=== PATIENT | female | born 1965 | race Caucasian/White ===

== ENCOUNTER → 2018-11-26 | Outpatient (CLI) | payer OTHER ==
--- NOTE | 2018-11-26 12:39 | BD ---
EXAMINATION TYPE: Axial Bone Density DATE OF EXAM: 11/26/2018 COMPARISON: NONE CLINICAL HISTORY: osteoporosis Height: 5'2 1/2 Weight: 127 FRAX RISK QUESTIONS: Secondary Osteoporosis: RISK FACTORS HISTORY OF: Family History of Osteoporosis: y Postmenopausal woman: y MEDICATIONS: Additional Medications: Additional History: EXAM MEASUREMENTS: Bone mineral densitometry was performed using the [employer] System. Bone mineral density as measured about the Lumbar spine is: ----- L1-L4(G/cm2): 0.848 T Score Values are as follows: ----- L2: -3.0 ----- L3: -2.8 ----- L4: -2.5 ----- L1-L4: -2.8 Bone mineral density about the R hip (g/cm2): 0.680 Bone mineral density about the L hip (g/cm2): 0.729 T Score values are as follows: -----R Neck: -2.6 -----L Neck: -2.2 -----R Total: -1.8 -----L Total: -1.5 IMPRESSION: Osteoporosis (T Score less than -2.5) overall and low back and femoral neck level right hip. There is increased fracture risk and therapy is usually indicated based on age. Re-Screen 1-2 years. NOTE: T-SCORE=SD OF THE YOUNG ADULT MEAN.
--- NOTE | 2018-11-27 09:35 | MM ---
Reason for exam: screening (asymptomatic). Last mammogram was performed 4 years and 9 months ago. History: Patient is postmenopausal. Benign excisional biopsy of the left breast, 1978. Physical Findings: A clinical breast exam by your physician is recommended on an annual basis and results should be correlated with mammographic findings. MG Screening Mammo w CAD Bilateral CC and MLO view(s) were taken. Prior study comparison: March 01, 2014, mammogram, performed at [facility]. March 19, 2012, mammogram, performed at [facility]. Finding: There is a high density, indistinct round mass in the 6 o'clock middle position. New finding since March 01, 2014. ASSESSMENT: Incomplete: need additional imaging evaluation, BI-RAD 0 RECOMMENDATION: Special view mammogram of the right breast. If lesion persists on supplemental views, image directed ultrasound is recommended. [facility] will attempt to contact patient to return for supplemental views and ultrasound if indicated.
== END | disposition home or self-care (01) ==
LOC: RADMAMWWP 07:27
PROVIDERS: ATTEND Family Medicine
DX: Z12.31 Encounter for screening mammogram for malignant neoplasm of breast (principal); M81.0 Age-related osteoporosis without current pathological fracture
CPT/HCPCS: 77067; 77080

== ENCOUNTER → 2018-12-11 | Outpatient (CLI) | payer OTHER ==
--- NOTE | 2018-12-11 08:25 | MM ---
Reason for exam: additional evaluation requested from abnormal screening. Last mammogram was performed less than 1 month ago. History: Patient is postmenopausal. Benign excisional biopsy of the left breast, 1978. Physical Findings: Nurse Summary: 0.5cm nodule in the right breast at 4 o'clock (nurse mj). MG Work Up Mamm w CAD RT Spot compression CC, spot compression MLO, and LM view(s) were taken of the right breast. Prior study comparison: November 26, 2018, bilateral MG screening mammo w CAD. March 01, 2014, mammogram, performed at [facility]. There are scattered fibroglandular densities. No persisting abnormality on additional view. Palpable marker medially indicating a cutaneous lesion present and stable back to 2013, slightly larger from 2011. These results were verbally communicated with the patient and result sheet given to the patient on 12/11/18. ASSESSMENT: Benign, BI-RAD 2 RECOMMENDATION: Return to routine screening mammogram schedule for both breasts. Manage on a clinical basis with regard to medial cutaneous lesion. If symptomatic, consider dermatology referral.
== END ==
LOC: RADMAMWWP 07:06
PROVIDERS: ATTEND Family Medicine
DX: R92.8 Other abnormal and inconclusive findings on diagnostic imaging of breast (principal)
CPT/HCPCS: 77065

== ENCOUNTER → 2021-02-28 | Outpatient (CLI) | payer OTHER ==
--- NOTE | 2021-02-28 11:43 | BD ---
"EXAMINATION TYPE: Axial Bone Density DATE OF EXAM: 02/28/2021 COMPARISON: NONE CLINICAL HISTORY: Height: 5 FT 2 1/2 IN Weight: 125 FRAX RISK QUESTIONS: Alcohol (3 or more units per day): NO Family History (Parent hip fracture): NO Glucocorticoids (More than 3mos): NO (Ex: prednisone, prednisolone, methylprednisolone, dexamethasone, and hydrocortisone). History of Fracture in Adulthood: NO Secondary Osteoporosis: 1. Type 1 Diabetes: NO 2. Hyperthyroidism: NO 3. Menopause before 45: NO 4. Malnutrition: NO 5. Chronic liver disease: NO Rheumatoid Arthritis: NO Current Tobacco Use: NO RISK FACTORS HISTORY OF: Surgery to Spine/Hip(right/left)/Wrist (right/left): NO Family History of Osteoporosis: YES Active: YES Diet low in dairy products/other sources of calcium: NO Postmenopausal woman: AGE 49 ABLATION AGE 41 Take estrogen and/or progesterone medications: NO Lost more than 2 inches in height since high school: NO MEDICATIONS: Osteoporosis Medications: YES Which medication: FOSAMAX How Long: SINCE 2019 Additional Medications: FOSAMAX, Additional History: EXAM MEASUREMENTS: Bone mineral densitometry was performed using the [employer]. Bone mineral density as measured about the Lumbar spine is: ----- L1-L4(G/cm2): 0.897 T Score Values are as follows: ----- L2: -2.9 ----- L3: -2.3 ----- L4: -1.8 ----- L1-L4: -2.4 Bone mineral density has: INCREASED 6.0 % since study of: 2018 Bone mineral density about the R hip (g/cm2): 0.684 Bone mineral density about the L hip (g/cm2): 0.727 T Score values are as follows: -----R Neck: -2.5 -----L Neck: -2.2 -----R Total: -1.6 -----L Total: -1.5 Bone mineral density has: INCREASED 1.9 % since study of: 2019 IMPRESSION: Osteoporosis (T Score less than -2.5). There is increased fracture risk and therapy is usually indicated based on age. Re-Screen 1-2 years. NOTE: T-SCORE=SD OF THE YOUNG ADULT MEAN."
--- NOTE | 2021-03-01 12:15 | MM ---
Reason for exam: screening (asymptomatic). Last mammogram was performed 2 years and 3 months ago. History: Patient is postmenopausal. Benign excisional biopsy of the left breast, 1978. Physical Findings: A clinical breast exam by your physician is recommended on an annual basis and results should be correlated with mammographic findings. MG Screening Mammo w CAD Bilateral CC and MLO view(s) were taken. Prior study comparison: December 11, 2018, right breast MG work up mamm w CAD RT. November 26, 2018, bilateral MG screening mammo w CAD. There are scattered fibroglandular densities. Focal asymmetry 5mm central middle depth. ASSESSMENT: Incomplete: need additional imaging evaluation, BI-RAD 0 RECOMMENDATION: Special view mammogram and ultrasound of the right breast. [facility] will attempt to contact patient to return for supplemental views and ultrasound.
== END | disposition home or self-care (01) ==
LOC: RADMAMWWP 07:31
PROVIDERS: ATTEND Family Medicine
DX: Z12.31 Encounter for screening mammogram for malignant neoplasm of breast (principal); M81.0 Age-related osteoporosis without current pathological fracture; Z98.890 Other specified postprocedural states
CPT/HCPCS: 77067; 77080

== ENCOUNTER → 2021-03-03 | Outpatient (CLI) | payer OTHER ==
--- NOTE | 2021-03-09 11:25 | MM ---
Reason for exam: additional evaluation requested from abnormal screening. Last mammogram was performed less than 1 month ago. History: Patient is postmenopausal. Benign excisional biopsy of the left breast, 1978. Physical Findings: Nurse Summary: 1cm nodule in the right breast at 3 o'clock (nurse nishi). MG Work Up Mamm w CAD RT Spot compression CC, spot compression MLO, and LM view(s) were taken of the right breast. Prior study comparison: February 28, 2021, bilateral MG screening mammo w CAD. December 11, 2018, right breast MG work up mamm w CAD RT. The breast tissue is heterogeneously dense. This may lower the sensitivity of mammography. Cutaneous/subcutaneous lesion medial posterior right breast gradually enlarging. A 6mm area of circumscribed nodularity becomes apparent on spot CC, suspected to be different from the originally questioned density. Density maybe upper inner quadrant. These results were verbally communicated with the patient and result sheet given to the patient on 03/03/21. ASSESSMENT: Incomplete: need additional imaging evaluation, BI-RAD 0 RECOMMENDATION: Ultrasound of the right breast. (12-5 o'clock)
--- NOTE | 2021-03-09 11:28 | USB ---
Reason for exam: additional evaluation requested from abnormal screening. History: Patient is postmenopausal. Benign excisional biopsy of the left breast, 1978. US Breast Workup Limited RT Right limited breast ultrasound including focal area of concern, retroareolar and axilla demonstrates a 0.9 x 0.4 x 0.9cm oval, circumscribed, hypoechoic lesion at 4 o'clock just deep to and partially involving skin likely sebaceous cyst. This can continue to be followed clinically. These results were verbally communicated with the patient and result sheet given to the patient on 03/03/21. ASSESSMENT: Probably benign, BI-RAD 3 RECOMMENDATION: Follow-up diagnostic mammogram of the right breast in 6 months. Manage patient on a clinical basis. If patient desires removal of the probably sebaceous cyst, dermatology referral can be considered.
== END | disposition home or self-care (01) ==
LOC: RADMAMWWP 07:15
PROVIDERS: ATTEND Family Medicine
DX: R92.8 Other abnormal and inconclusive findings on diagnostic imaging of breast (principal)
CPT/HCPCS: 77065

== ENCOUNTER → 2021-12-20 | Outpatient (CLI) | payer OTHER ==
[2021-12-20 10:40] LABS: Basophils # (A) 0.03 X 10*3/uL (0.00-0.10); Basophils % (A) 0.5 %; Eosinophils # (A) 0.06 X 10*3/uL (0.04-0.35); Eosinophils % (A) 1.1 %; HCT 43.8 % (37.2-46.3); HGB 14.3 g/dL (12.0-15.0); Immature Grans, Automated 0.2 %; Lymphocytes % (A) 33.4 %; MCH 31.5 pg (27.0-32.0); MCHC 32.6 g/dL (32.0-37.0); MCV 96.5 fL (80.0-97.0); Monocytes # (A) 0.52 X 10*3/uL (0.20-1.00); Monocytes % (A) 9.1 %; NRBC Per 100 WBC 0 /100 WBCS (0.0-0.0); Neutrophils # (A) 3.17 X 10*3/uL (1.80-7.70); Neutrophils % (A) 55.7 %; Platelet Count 302 X 10*3/uL (140-440); RBC 4.54 X 10*6/uL (4.10-5.20); RDW 12.1 % (11.5-14.5); WBC 5.69 X 10*3/uL (4.50-10.00)
[2021-12-20 14:31] LABS: ALT 21 U/L (8-44); AST 26 U/L (13-35); African American GFR (CKD) 90.5 (60.0-200.0); Albumin 4.4 g/dL (3.8-4.9); Albumin/Globulin Ratio 1.54 (1.60-3.17); Alkaline Phosphatase 65 U/L (41-126); BUN/Creat Ratio 20.31 Ratio (12.00-20.00); Blood Urea Nitrogen 16.9 mg/dL (9.0-27.0); Calcium 9.5 mg/dL (8.7-10.3); Carbon Dioxide 25.6 mmol/L (20.0-27.5); Chloride 105 mmol/L (96-109); Chol/HDL Ratio 2.34 Ratio; Globulin 2.8 g/dL (1.6-3.3); Glucose 94 mg/dL (70-110); Non-African American GFR(CKD) 78.1 (60.0-200.0); Potassium 4.7 mmol/L (3.5-5.5); Sodium 140 mmol/L (135-145); Total Protein 7.2 g/dL (6.2-8.2)
== END | disposition home or self-care (01) ==
LOC: LABWHC1 07:23
PROVIDERS: ATTEND Nurse Practitioner Family
DX: Z00.00 Encounter for general adult medical examination without abnormal findings (principal); Z13.220 Encounter for screening for lipoid disorders; E55.9 Vitamin D deficiency, unspecified
CPT/HCPCS: 36415; 80053; 80061; 82306; 85025

== ENCOUNTER → 2023-03-05 | Outpatient (CLI) | payer OTHER ==
--- NOTE | 2023-03-05 08:46 | MM ---
Reason for Exam: Follow-up at short interval from prior study. Last mammogram was performed 2 year(s) and 0 month(s) ago. Patient History: Menarche at age 12. First Full-Term at age 16. Postmenopausal. 1979, Benign Excisional Biopsy on the left side. Risk Values: Aliyah 5 year model risk: 1.1%. NCI Lifetime model risk: 6.6%. Tissue Density: The breast tissue is heterogeneously dense. This may lower the sensitivity of mammography. Findings: Analyzed By CAD. No new suspicious masses within either breast. Stable 7 mm ovoid circumscribed superficial mass within the medial aspect of the right breast posteriorly. No suspicious group of calcification within either breast. No architectural distortion within either breast. Overall Assessment: Benign, BI-RAD 2 Management: Screening Mammogram of both breasts in 1 year. A clinical breast exam by your physician is recommended on an annual basis and results should be correlated with mammographic findings. This exam should not preclude additional follow-up of suspicious palpable abnormalities. Results were given to the patient verbally at the time of exam. Note on Aliyah scores and lifetime risk: 1. A Aliyah score greater than 3% is considered moderate risk. If this is the case, consider specialist referral to assess eligibility for a risk reducing agent. If overall lifetime risk for the development of breast cancer is 20% or higher, the patient may qualify for future screening with alternating mammogram and breast MRI. Electronically signed and approved by: Ray Pizarro D.O.
--- NOTE | 2023-03-05 09:35 | BD ---
EXAMINATION TYPE: Axial Bone Density DATE OF EXAM: 03/05/2023 CLINICAL HISTORY: 57 years old Female. 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 Hyperparathyroidism: no Adrenal Insufficiency: no MEDICATIONS: Osteoporosis Medications: yes, fosamax, for about 4 yrs. Additional Medications: vit d and calcium Additional History: osteoporosis, articular cartilage disorder. EXAM MEASUREMENTS: Bone mineral densitometry was performed using the [employer] System. Bone mineral density as measured about the Lumbar spine is: ----- L1-L4(G/cm2): 0.915 T Score Values are as follows: ----- L1: -2.1 ----- L2: -2.5 ----- L3: -1.9 ----- L4: -2.5 ----- L1-L4: -2.2 Z Score Values are as follows: ----- L1: -0.8 ----- L2: -1.2 ----- L3: -0.6 ----- L4: -1.2 ----- L1-L4: -0.9 Bone mineral density has: Increased 2.0% since study of: 02.28.2021 Bone mineral density about the R hip (g/cm2): 0.812 Bone mineral density about the L hip (g/cm2): 0.825 T Score values are as follows: -----R Neck: -2.3 -----L Neck: -2.1 -----R Total: -1.6 -----L Total: -1.4 Z Score values are as follows: -----R Neck: -1.0 -----L Neck: -0.8 -----R Total: -0.6 -----L Total: -0.5 Bone mineral density has: Increased 0.5% since study of: 02.28.2021 FRAX%s: The graph provided illustrates a 18.7% chance for a major osteoporotic fx and a 1.7% chance f or the hips probability for fx in 10 years time. IMPRESSION: Osteopenia (T Score between -2.5 and -1). There is slightly increased risk of fracture and the patient may be considered for treatment. Re-Screen 2-5 years. NOTE: T-SCORE=SD OF THE YOUNG ADULT MEAN.
== END | disposition home or self-care (01) ==
LOC: RADBDWWP 07:45
PROVIDERS: ATTEND Family Medicine
DX: M81.0 Age-related osteoporosis without current pathological fracture (principal); N63.20 Unspecified lump in the left breast, unspecified quadrant; M85.89 Other specified disorders of bone density and structure, multiple sites; M24.10 Other articular cartilage disorders, unspecified site
CPT/HCPCS: 77062; 77066; 77080

== ENCOUNTER → 2023-10-29 | Outpatient (CLI) | payer OTHER ==
--- NOTE | 2023-10-29 08:07 | US ---
EXAMINATION TYPE: US kidneys/renal and bladder DATE OF EXAM: 10/29/2023 COMPARISON: NONE CLINICAL INDICATION: Female, 58 years old with history of N28.1 CYST OF KIDNEY, ACQUIRED; Left renal cyst visualized on recent x-ray?? per patient EXAM MEASUREMENTS: Right Kidney: 10.7 x 3.9 x 4.3 cm Left Kidney: 10.0 x 4.2 x 4.0 cm Right Kidney: no evidence of hydronephrosis Left Kidney: no evidence of hydronephrosis Bladder: wnl Bilateral Jets seen: no There is no evidence for hydronephrosis at this point in time. No nephrolithiasis is seen. No zac s are identified. The urinary bladder is anechoic. Bilateral ureteral jets are seen. IMPRESSION: No discrete abnormality seen.
== END | disposition home or self-care (01) ==
LOC: RADUSWWP 07:02
PROVIDERS: ATTEND Internal Medicine Rheumatology
DX: N28.1 Cyst of kidney, acquired (principal)
CPT/HCPCS: 76770